=== PATIENT | male | born 1990 | race Caucasian/White ===

== ENCOUNTER 2020-07-03 16:04 | Emergency (ER) | payer OTHER, SELFPAY ==
[2020-07-03 16:41] VITALS: BP 131/81; PULSE 67; RESP 18; TEMP 37.1; O2SAT 99; BMI 22.4
== END 2020-07-04 00:58 | disposition left against medical advice (07) ==
PROVIDERS: Emergency Provider Emergency Medicine
DX: R10.9 Unspecified abdominal pain (principal)
CPT/HCPCS: 99282; 99283

== ENCOUNTER 2021-06-04 06:18 | Emergency (ER) | payer OTHER, SELFPAY ==
[2021-06-04 06:30] VITALS: BP 115/70; PULSE 83; RESP 16; TEMP 36.9; O2SAT 96; BMI 21.8
[2021-06-04 06:43] LABS: IDNOW Serial# 55D5AD1C
[2021-06-04 06:44] LABS: COVID-19 Test Positive (Negative)
--- NOTE | 2021-06-04 06:45 | ED.URI ---
HPI - URI/Sore Throat General Chief Complaint: Headache Stated Complaint: headache/covid exposure Time Seen by Provider: 06/04/21 06:45 Source: patient Mode of arrival: ambulatory Limitations: no limitations History of Present Illness MD elicited complaint: cough, nasal congestion and other (headache) Onset (ago): day(s) (few) Consistency: constant Severity: moderate Description of mucous: clear Able to tolerate fluids by mouth: Yes Exacerbating factors: nothing Relieving factors: nothing Context: sick contacts (COVID exposures at work) Associated symptoms: headache, rhinorrhea and cough Treatments prior to arrival: none Related Data Previous Rx's Medication Instructions Recorded ibuprofen 600 mg tablet 600 mg PO Q6H PRN #30 tab 06/04/21 Allergies Allergy/AdvReac Type Severity Reaction Status Date / Time No Known Allergies Allergy Unverified 06/15/20 15:59 [No Known Allergies*] Review of Systems Review of Systems: Constitutional : No Fever, No Chills, pos Fatigue, pos Malaise ENT/Mouth : No sore throat, No Rhinorrhea Eyes: No Eye Pain, No Swelling, No Redness Cardiovascular : No Chest Pain, No SOB Respiratory : pos Cough, No Sputum, No Wheezing Gastrointestinal : No Nausea, No Vomiting, No Diarrhea Genitourinary : No Dysuria, No Urinary Frequency, No Hematuria, Musculoskeletal : No joint pain, No Myalgias, No Joint Swelling Skin : No Skin Lesions, No rash Neuro : No Weakness, No Numbness, No Dizziness, pos Headache All other systems reviewed and are negative FORMERLY [facility], [facility] Past Medical History Medical History (Updated 06/04/21 @ 06:46 by Elisabeth Strange DO) No known health problems Social History Social History Advance Directives: No Advance Directives Information Provided: No Physical Exam Vital Signs: Vital Signs: Last Vital Signs Temp 98.4 F 06/04/21 06:30 Pulse 83 06/04/21 06:30 Resp 16 06/04/21 06:30 BP 115/70 06/04/21 06:30 Pulse Ox 96 06/04/21 06:30 Body Mass Index 21.8 Appearance: Alert. Oriented X3. No acute distress. Eyes: Pupils equal, round and reactive to light. ENT: Pharynx normal. Neck: Normal inspection. Neck supple. CVS: Normal heart rate and rhythm. Pulses normal. Respiratory: No respiratory distress. Breath sounds normal. Abdomen: Soft and non-tender. Skin: Skin warm and dry. Normal skin color. Extremities: No lower extremity edema. Neuro: Oriented X 3. No motor deficit. No sensory deficit. MDM - URI/Sore Throat MDM Narrative Medical decision making narrative: 30 yo male otherwise healthy c/o cough and headache post COVID exposure at work - normal 02, denies dyspnea, COVID test positive, clear lungs - supportive care and quarantine, given precautions to return Lab Data Labs: Lab Results 06/04/21 Range/Units 06:26 COVID-19 ([facility]) Positive A (Negative) COVID-19 Clin Com See Note Discharge Plan Discharge Clinical Impression: COVID-19 Patient Disposition: Home, Self-Care Instructions: COVID-19 (Coronavirus Disease 2019) (ED) Additional Instructions: return to ED for any worsening symptoms or concerns if you cannot walk to your bathroom due to shortness of breath please come back Prescriptions: New ibuprofen 600 mg tablet 600 mg PO Q6H PRN (Reason: pain) Qty: 30 RF: 0 Stand Alone Forms: Work/School Release
== END 2021-06-04 07:06 | disposition home or self-care (01) ==
PROVIDERS: Emergency Provider Emergency Medicine
DX: U07.1 COVID-19 (principal)
CPT/HCPCS: 36415; 87635; 99283

== ENCOUNTER 2023-09-10 21:29 | Emergency (ER) | payer OTHER, SELFPAY ==
--- NOTE | ~2023-09-10 | XR_ITS ---
EXAMINATION: XR CHEST CLINICAL INFORMATION: Cough COMPARISON: None available. TECHNIQUE: Frontal view of the chest was obtained. FINDINGS: No significant abnormality is noted involving the heart, lungs, mediastinum, bony thorax or soft tissues. XR/XR chest 1V IMPRESSION: Unremarkable examination.
[2023-09-10 21:30] VITALS: BP 140/81; PULSE 91; RESP 18; TEMP 38.6; O2SAT 97; BMI 21.9
[2023-09-10 21:44] LABS: MANUAL DIFF FLAG NO
[2023-09-10 21:45] LABS: Basophils Percent Auto 0.1 % (0-2); Hematocrit 39.5 % (42.0-52.0); Hemoglobin 13.3 g/dl (14.0-18.0); Imm Gran Abs Auto 0.02 X10*3/uL (0.00-0.03); Imm Gran Pct Auto 0.3 % (0.0-0.4); Lymphocytes Absolute Auto 1.4 X10*3/uL (1.2-4.9); Lymphocytes Percent Auto 18.8 % (20-40); Mean Corpuscular HGB Conc 33.7 g/dl (31.0-36.0); Mean Corpuscular Hemoglobin 28.5 pg (27.0-33.0); Mean Corpuscular Volume 84.6 fL (80.0-98.0); Mean Platelet Volume 9.8 fL (9.4-12.4); Monocytes Absolute Auto 0.6 X10*3/uL (0.1-1.2); Monocytes Percent Auto 8.3 % (2-11); Neutrophils Absolute Auto 5.3 x10*3/uL (2.0-8.3); Neutrophils Percent Auto 72.5 % (45-73); Platelet Count 155 X10*3/uL (160-400); Red Blood Count 4.67 X10*6/uL (4.60-5.80); Red Cell Distribution Width 12.8 % (11.0-16.0); White Blood Count 7.4 X10*3/uL (4.8-10.8)
[2023-09-10 21:59] LABS: Alanine Aminotransferase 22 U/L (0-40); Albumin Level 4.3 g/dL (3.5-5.0); Alkaline Phosphatase 89 U/L (39-117); Anion Gap 15 (12-20); Aspartate Amino Transferase 26 U/L (5-37); Bilirubin Total 0.3 mg/dL (0.0-1.0); Blood Urea Nitrogen 16 mg/dL (9-16); Calcium 9.2 mg/dL (8.4-10.2); Carbon Dioxide 23 mmol/L (22-29); Chloride 100 mmol/L (96-108); Creatinine Clr Calc Pharmacy 157.9; Estimated Glomerular Filt Rate > 60; Glucose Random 109 mg/dL (60-115); Potassium 3.6 mmol/L (3.3-5.1); Sodium 134 mmol/L (135-145); Total Protein 7.7 g/dL (6.5-8.0)
[2023-09-10 22:23] LABS: Influenza A PCR POSITIVE (Negative); Influenza B PCR NEGATIVE (Negative); Resp Syncy Virus RNA Qual PCR NEGATIVE (Negative); SARS COV2 PCR INHOUSE NEGATIVE (Negative)
== END 2023-09-11 00:02 | disposition left against medical advice (07) ==
LOC: HO.ED 09-11 00:01
PROVIDERS: Emergency Provider Emergency Medicine
DX: R05.9 Cough, unspecified (principal); Z20.822 Contact with and (suspected) exposure to COVID-19; Z20.828 Contact with and (suspected) exposure to other viral communicable diseases; Z79.899 Other long term (current) drug therapy
CPT/HCPCS: 0241U; 71045; 80053; 85025; 99281; 99283

== ENCOUNTER 2024-12-25 19:55 | Emergency (ER) | payer MEDICAID, SELFPAY ==
--- NOTE | 2024-12-25 20:07 | ED_ITS ---
HPI - General Adult General Chief complaint: Dental/Oral Stated complaint: tooth ache Time Seen by Provider: 12/25/24 20:09 Source: patient History of Present Illness HPI narrative: 34-year-old male presents for evaluation of 4 day history of right upper dental pain. Patient states gradual onset. He has a history of poor dentition and wears an upper partial. He denies any fevers chills nausea or vomiting. He has been eating and drinking normally. He has tried [id number] medication with minimal relief. Patient is concerned for possible infection. He is otherwise feeling well. Related Data Previous Rx's ?Medication ?Instructions ?Recorded clindamycin HCl 300 mg capsule 300 mg PO Q6H 7 days #28 caps 12/25/24 naproxen 500 mg tablet 500 mg PO BID PRN pain 7 days #14 12/25/24 tabs Allergies Allergy/AdvReac Type Severity Reaction Status Date / Time No Known Allergies Allergy Verified 12/25/24 20:09 [No Known Allergies*] Review of Systems ENT: Reports dental pain, Denies dysphagia, Denies dry mouth, Denies lip swelling, Denies sinus pain, Denies sinus pressure, Denies sore throat and Denies throat swelling Gastrointestinal: Gastrointestinal: Denies dysphagia Allergic/Immunologic: Allergic/Immunologic: Denies lip swelling and Denies throat swelling PMF Past Medical History Medical History (Updated 12/25/24 @ 20:11 by GREGG Cadena) No known health problems Social History Social History Smoked in Last 30 Days: No Use of substances other than those prescribed or required for medical reasons: No Advance Directives: No Advance Directives Information Provided: No Do you have a plan to hurt others: No Plan Physical Exam ED Vital Signs: Vital Signs - 24 hr 12/25/24 20:08 Temperature 98.3 F Pulse Rate 67 Respiratory Rate 16 Blood Pressure 125/71 Pulse Oximetry 98 Oxygen Delivery Method Room Air BMI result Body Mass Index 27.9 Const Other: Speaks full clear sentences. HENMT Other: Oropharynx is moist. Patient was able to remove his upper partial. Remaining appears to be tooth 4. And 5. They are broken and decayed. There is periapical erythema and edema. No evidence of fluctuance abscess or streaking. Nares are patent. There is no nasal discharge. There is no maxillary sinus tenderness. Speaks full clear sentences. No tongue elevation or edema. Neck Other: No lymphadenopathy Medical Decision Making Medical Decision Making MDM Narrative: 34-year-old male with dental pain over the past 4 days. Erythematous remaining gingiva. Teeth are in poor repair. Concern for developing infection. We will place patient on clindamycin given the potential for high risk for abscess. Patient will trial naproxen. He reports having a dentist in [place] that he will follow up with. Patient expresses understanding of all discharge instructions and has no further questions at this time. Differential Diagnosis Differential Diagnoses: The differential diagnosis associated with the presentation includes Dental abscess Dental caries Broken dentition Dental infection Discharge Plan Discharge Clinical Impression: Pain, dental Patient Disposition: Home, Self-Care Instructions: Dental Abscess (ED), Toothache (ED) Additional Instructions: Clindamycin as directed. Finish all antibiotics. Naproxen as directed. Take with food. Watch for increased swelling, fevers, discharge or any other concern return immediately to the emergency department. Follow-up with your primary care provider. Call this week to schedule a follow- up appointment. Return to the emergency department if you have any worsening of symptoms, or any concerns. Get well soon! Prescriptions: New clindamycin HCl 300 mg capsule 300 mg PO Q6H 7 Days Qty: 28 0RF naproxen 500 mg tablet 500 mg PO BID PRN (Reason: pain) 7 Days Qty: 14 0RF Rx Instructions: Take with food. Discontinued ibuprofen 600 mg tablet 600 mg PO Q6H PRN (Reason: pain) Qty: 30 0RF Stand Alone Forms: Work/School Release Print Language: Vietnamese
[2024-12-25 20:08] VITALS: BP 125/71; PULSE 67; RESP 16; TEMP 36.8; O2SAT 98; BMI 27.9
[2024-12-25 20:28] VITALS: BP 125/71; PULSE 67; RESP 16; TEMP 36.8; O2SAT 98
== END 2024-12-25 20:29 | disposition home or self-care (01) ==
PROVIDERS: Emergency Provider Emergency Medicine
DX: K08.89 Other specified disorders of teeth and supporting structures (principal); K05.10 Chronic gingivitis, plaque induced
CPT/HCPCS: 99283; 99284

== ENCOUNTER 2025-07-05 17:40 | Inpatient (IN) | payer OTHER, SELFPAY ==
--- NOTE | ~2025-07-05 | CT_ITS ---
CLINICAL HISTORY: new seizure, found unresponsive CT head without contrast Comparison: None provided Findings: Study limited by patient motion. Along the high right frontal convexity, there is subjacent hyperdensity that may represent a small acute subdural hematoma (series 3, images 69-70 ). In the high right frontal lobe, there is also likely a small area of subarachnoid blood ( series 3, images 51- 58 ). There is no intraventricular hemorrhage. Suspicion is further raised by the absence of a similar contralateral finding. No intra-axial mass, midline shift, or hydrocephalus. No significant atrophy-like change or white matter disease. There is no sinus or mastoid fluid. The orbits are within normal limits. No skull fracture. IMPRESSION: Study limited by patient motion. Possible right-sided small acute subdural hematoma and small area of subarachnoid hemorrhage. No intraventricular hemorrhage, hydrocephalus, or midline shift. Advise close interval repeat head CT. This document has been electronically signed by: Jean-Claude Choudhary MD on 07/05/2025 21:30:05
--- NOTE | ~2025-07-05 | CT_ITS ---
CLINICAL HISTORY: r o subdural hematoma subarachnoid hemorrhage - repeat CT per radiologist CT head without contrast Comparison: CT/SR - CT HEAD/BRAIN WO IV CON - 07/05/25 20:08 EDT Findings: The previously identified areas of concerns for small right convexity subdural hematoma and small right frontal subarachnoid hemorrhage are not clearly identified on this examination and may have been artifactual due to patient motion on the prior study. No intra-axial mass, midline shift, hydrocephalus, or acute hemorrhage. No significant atrophy-like change or white matter disease. The visualized paranasal sinuses and mastoid air cells are normal. The orbits are unremarkable. No skull fracture. IMPRESSION: Previous findings of possible small right subdural hematoma and small subarachnoid hemorrhage are not clearly seen on this examination may have been artifactual due to patient motion on the prior study. No acute findings on this examination. This document has been electronically signed by: Jean-Claude Choudhary MD on 07/05/2025 23:43:17
--- NOTE | ~2025-07-05 | CT_ITS ---
CLINICAL HISTORY: fall? found unresponsive, + new seizure CT cervical spine without contrast Comparison: None provided Findings: Normal vertebral body alignment. No significant degenerative change. No acute fractures or dislocations. Visualized intracranial contents are unremarkable. No cervical fluid collections. 0.6 cm hypodense well-circumscribed nodule in the upper pole of the left thyroid lobe. Biapical cystic airspace disease. IMPRESSION: No acute findings. This document has been electronically signed by: Jean-Claude Choudhary MD on 07/05/2025 21:08:39
[2025-07-05 17:51] VITALS: BP 128/80; PULSE 66; RESP 18; TEMP 36.7; O2SAT 96; BMI 22.8
--- NOTE | 2025-07-05 17:55 | ECG_ITS ---
Test Reason : FALL Blood Pressure : */* mmHG Vent. Rate : 55 BPM Atrial Rate : 55 BPM P-R Int : 150 ms QRS Dur : 84 ms QT Int : 346 ms P-R-T Axes : 73 55 35 degrees QTcB Int : 331 ms Sinus bradycardia Nonspecific T wave abnormality Abnormal ECG When compared with ECG of 04-Dec-2017 16:22, Nonspecific T wave abnormality now evident in Anterolateral leads QT has shortened Referred By: Generic ED Physician Electronically Signed By: WILLIS HOLLINGSWORTH MD
[2025-07-05 18:37] VITALS: BP 124/76; PULSE 68; RESP 16; TEMP 36.8; O2SAT 97
--- NOTE | 2025-07-05 18:45 | PC.NURSE ---
While getting report from Day shift RN pt started to have seizure lasting approx 60 secs, Pt turned on his side while maintaining airway, pt was given Valium 5mg IV push, pt moved into Room 4,
[2025-07-05] MEDS: diazePAM 10 MG/2 ML CARTRIDGE 5 MG IVPUSH (18:50)
[2025-07-05] MEDS: levETIRAcetam in NaCl (iso-os) 1,500 MG/100 ML PIGGYBACK 400 MG IV (19:04)
[2025-07-05 19:23] LABS: Hematocrit 39.0 % (42.0-52.0); Hemoglobin 12.9 g/dl (14.0-18.0); Imm Gran Abs Auto 0.02 X10*3/uL (0.00-0.03); Imm Gran Pct Auto 0.3 % (0.0-0.4); Lymphocytes Absolute Auto 1.9 X10*3/uL (1.2-4.9); MANUAL DIFF FLAG NO; Mean Corpuscular HGB Conc 33.1 g/dl (31.0-36.0); Mean Corpuscular Hemoglobin 28.0 pg (27.0-33.0); Mean Corpuscular Volume 84.6 fL (80.0-98.0); NRBC Abs Auto 0.000 X10*3/uL (0.0-0.012); NRBC Pct Auto 0.0 /100WBC (0.0-0.2); Platelet Count 217 X10*3/uL (160-400); Red Blood Count 4.61 X10*6/uL (4.60-5.80); White Blood Count 7.4 X10*3/uL (4.8-10.8)
[2025-07-05 19:30] LABS: Anion Gap 12 (12-20)
[2025-07-05 19:38] LABS: Alanine Aminotransferase 13 U/L (0-40); Albumin Level 4.5 g/dL (3.5-5.0); Alkaline Phosphatase 96 U/L (39-117); Aspartate Amino Transferase 18 U/L (5-37); Blood Urea Nitrogen 13 mg/dL (9-16); Calcium 9.4 mg/dL (8.4-10.2); Carbon Dioxide 28 mmol/L (22-29); Chloride 108 mmol/L (96-108); Creatinine Clr Calc Pharmacy 132.9; Estimated Glomerular Filt Rate > 60; Potassium 3.5 mmol/L (3.3-5.1); Sodium 144 mmol/L (135-145); Total Protein 7.5 g/dL (6.5-8.0)
[2025-07-05 21:22] VITALS: BP 140/83; PULSE 56; RESP 14; TEMP 36.3; O2SAT 98
--- NOTE | 2025-07-05 21:35 | PC.NURSE ---
call received from [facility] at [address] scan results, MD Laura notified at 2133.
--- NOTE | 2025-07-05 22:20 | ED_ITS ---
HPI - General Adult General Chief complaint: ETOH/Substance Use Stated complaint: baclofen & methadone fell injured R side head&ribs Time Seen by Provider: 07/05/25 18:07 Source: patient and EMS Mode of arrival: EMS Limitations: other History of Present Illness ED Provider: Dr. Cassidy Laura HPI narrative: Patient comes to the emergency room via ambulance from home. According to EMS, the patient called because she found the patient lying on the floor, confused. According to the patient, when he 1st came in, states that earlier this morning he took his prescribed methadone 155 mg. Then took 6 baclofen pills. Patient denies SI or HI. Patient states that he does not remember much after that. Patient's seems to be a little confused, answering questions fairly appropriately. But he does not seem to look quite right. Possibly under the influence of drugs versus alcohol versus postictal? Related Data Previous Rx's ?Medication ?Instructions ?Recorded clindamycin HCl 300 mg capsule 300 mg PO Q6H 7 days #2 8 caps 12/25/24 naproxen 500 mg tablet 500 mg PO BID PRN pain 7 day s #14 12/25/24 tabs Allergies Allergy/AdvReac Type Severity Reaction Status Date / Time No Known Allergies (No Known Allergy Verified 07/05/25 17:53 Allergies*) Review of Systems 2 Review of Systems: Yes Unobtainable due to mental status PMFSH Past Medical History Medical History No known health problems Social History Social History Advance Directives: No Advance Directives Information Provided: No Physical Exam ED Exam Exam: Appearance: Alert. No acute distress, seems a bit confused Eyes: Pupils equal, round and reactive to light. ENT: Pharynx normal. Neck: Normal inspection. Neck supple. No lymph nodes noted. No crepitus CVS: Normal heart rate and rhythm. Pulses normal. Normal S1 and S2 Respiratory: No respiratory distress. Breath sounds normal. No Wheezing. No rales Abdomen: Soft and nontender. No rigidity. No distention. Skin: Skin warm and dry. Normal skin color. Normal skin turgor. Patient has a small superficial laceration to the nose Extremities: No lower extremity edema. No Lacerations. No Rash Neuro: No motor deficit. No sensory deficit. Moving all extremities. No slurred speech. CN 2 through 12 grossly intact Psych: calm, cooperative, seems a bit confused Vital Signs: Vital Signs - 24 hr 07/05/25 17:51 07/05/25 18:37 07/05/25 21:22 Temperature 98.1 F 98.3 F 97.3 F Pulse Rate 66 68 56 Respiratory Rate 18 16 14 Blood Pressure 128/80 124/76 140/83 H Pulse Oximetry 96 97 98 Oxygen Delivery Method Room Air Room Air Room Air 07/06/25 00:35 Temperature 98.3 F Pulse Rate 56 Respiratory Rate 17 Blood Pressure 135/87 Pulse Oximetry 99 Oxygen Delivery Method Room Air BMI result Body Mass Index 22.8 Course Course Course Narrative: I was informed by the patient's nurse that the patient was having a tonic-clonic seizure. Immediately, we assessed the patient, patient was seizing, given 5 mg of diazepam IV. The seizure stopped All of patient's labs and imaging pending.. Medications Administered Discontinued Medications Generic Name Dose Route Start Last Admin Trade Name Freq PRN Reason Stop Dose Admin Diazepam 5 mg 07/05/25 20:19 07/05/25 18:50 Diazepam 10 Mg/2 Ml Cartridge IVPUSH 07/05/25 20:20 5 mg STAT STA Administration Sodium Chloride 2,000 mls @ 999 mls/hr 07/05/25 19:37 07/05/25 22:31 Ns IVCONT 07/05/25 21:37 Infused .Q2H1M ONE Infusion Levetiracetam 1,500 mg in 100 mls @ 400 mls/hr 07/05/25 19:37 07/05/25 19:30 Keppra IV 07/05/25 19:51 Infused ONCE ONE Infusion Medical Decision Making Medical Decision Making [facility] Narrative: My interpretation of EKG: Sinus bradycardia, heart rate 55, no ST segment depression or elevation, no T-wave inversion, QTC 331 My interpretation of labs: No significant abnormality in patient's hematology or chemistry. Ethanol level negative Cervical spine CT does not show any acute abnormality. The CT scan of the brain is inconclusive. There may be small acute subdural hematoma and a small area of small subarachnoid hemorrhage. Steady submitted by patient motion. We will repeat the CT scan. Patient is still somnolent. Patient wakes up when his name is called, opens his eyes, asks what? And goes back to sleep. 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 Repeat CT scan does not show any acute bleed. Patient is more awake, alert but still somnolent. I discussed the patient with Dr. Patel, patient being admitted Differential Diagnosis Differential Diagnoses: The differential diagnosis associated with the presentation includes (Seizure, polysubstance abuse, alcohol abuse, concussion) Admission/Observation Consideration of admission/observation: Escalation of care including admission/observation considered Consult Healthcare Provider Management of the patient was discussed with: Hospitalist Lab Data MDM Lab Attestation statement: I reviewed the patient's lab results. 07/05/25 18:53 07/05/25 18:53 Labs: Lab Results 07/05/25 Range/Units 18:53 WBC 7.4 (4.8-10.8) X10*3/uL RBC 4.61 (4.60-5.80) X10*6/uL Hgb 12.9 L (14.0-18.0) g/dl Hct 39.0 L (42.0-52.0) % MCV 84.6 (80.0-98.0) fL MCH 28.0 (27.0-33.0) pg MCHC 33.1 (31.0-36.0) g/dl RDW 14.8 (11.0-16.0) % Plt Count 217 D (160-400) X10*3/uL MPV 10.0 (9.4-12.4) fL Immature Gran % (Auto) 0.3 (0.0-0.4) % Neut % (Auto) 65.1 (45-73) % Lymph % (Auto) 25.5 (20-40) % Isabella % (Auto) 8.1 (2-11) % Eos % (Auto) 0.7 (0-4) % Baso % (Auto) 0.3 (0-2) % Lymph # (Auto) 1.9 (1.2-4.9) X10*3/uL Isabella # (Auto) 0.6 (0.1-1.2) X10*3/uL Eos # (Auto) 0.1 (0.0-0.4) X10*3/uL Baso # (Auto) 0.0 (0.0-0.2) X10*3/uL Abs Immat Gran (auto) 0.02 (0.00-0.03) X10*3/uL Absolute Neuts (auto) 4.8 (2.0-8.3) x10*3/uL Absolute Nucleated RBC 0.000 (0.0-0.012) X10*3/uL Nucleated RBC % (auto) 0.0 (0.0-0.2) /100WBC Sodium 144 (135-145) mmol/L Potassium 3.5 (3.3-5.1) mmol/L Chloride 108 (96-108) mmol/L Carbon Dioxide 28 (22-29) mmol/L Anion Gap 12 (12-20) BUN 13 (9-16) mg/dL Creatinine 0.83 (0.5-1.4) mg/dL Estim Creat Clear Calc 132.9 Estimated GFR > 60 Random Glucose 93 (60-115) mg/dL Calcium 9.4 (8.4-10.2) mg/dL Total Bilirubin 0.2 (0.0-1.0) mg/dL AST 18 (5-37) U/L ALT 13 (0-40) U/L Alkaline Phosphatase 96 (39-117) U/L Total Creatine Kinase 157 (38-174) U/L Total Protein 7.5 (6.5-8.0) g/dL Albumin 4.5 (3.5-5.0) g/dL Ethyl Alcohol < 10 mg/dL Independent Interpretation I performed an independent interpretation of an: EKG and CT Scan Radiology Impression Discussion of test interpretation with radiology: I have reviewed the radiologist's reading. Radiologist Impression: Previous findings of possible small right subdural hematoma and small subarachnoid hemorrhage are not clearly seen on this examination may have been artifactual due to patient motion on the prior study. No acute findings on this examination. Critical Care Time Critical Care Time Critical Care Time: Yes Total Critical Care Time: 70 Attestation: I have personally provided critical care time. Time includes review of lab data, radiology results, discussion with consultants, and monitoring for potential decompensation. Intervention performed as documented. Discharge Plan Discharge Clinical Impression: Seizure Patient Disposition: Home, Self-Care Instructions: Recurrent Seizures in Adults (ED) Prescriptions: No Action clindamycin HCl 300 mg capsule 300 mg PO Q6H 7 Days Qty: 28 0RF naproxen 500 mg tablet 500 mg PO BID PRN (Reason: pain) 7 Days Qty: 14 0RF Rx Instructions: Take with food. Print Language: Unable To Collect
--- NOTE | 2025-07-05 23:40 | PC.NURSE ---
Pt awake and alert, mother at bedside, stated that patient may have had a seizure at home due her finding pt on the floor face first
[2025-07-06 00:35] VITALS: BP 135/87; PULSE 56; RESP 17; TEMP 36.8; O2SAT 99
--- NOTE | 2025-07-06 02:46 | PM.IMHP ---
History of Present Illness Date of Service: 07/06/25 Attending physician on admission: Franck Patel Chief Complaint: seizure Patient is a 34-year-old male with a past medical history significant for substance use disorder on methadone and history of epilepsy as a child (no seizure and many years), who presented to the ED after a witnessed seizure. The patient reports that he has been taking his mother's baclofen, usually takes about 4 per day, has gone about 6 days without in took 6 baclofen just prior to the seizure. He was found on the floor by a family member and EMS was called. The patient took this just after taking his methadone from [facility], 155 mg. He denies SI or HI. He reports he has been taking the baclofen for quite awhile, no clear reason why. Upon arrival he was slow to respond and was complaining of neck pain. He had a witnessed seizure in the ED and was responsive to diazepam, lethargic afterwards but responsive. Review of Systems Constitutional: Constitutional: Denies body ache(s), Denies chills, Denies fatigue, Denies fever(s) and Denies headache(s) Eyes: Eyes: Denies change in vision ENT: Denies headache(s), Denies nasal congestion and Denies sore throat Cardiovascular: Cardiovascular: Denies chest pain, Denies rapid heart rate, Denies leg edema, Denies lightheadedness and Denies dyspnea Respiratory: Respiratory: Denies chest congestion, Denies cough, Denies dyspnea and Denies wheezing Gastrointestinal: Gastrointestinal: Denies abdominal pain, Denies nausea and Denies vomiting Genitourinary: Genitourinary: Denies dysuria and Denies urinary urgency Musculoskeletal: Musculoskeletal: Denies myalgias Integumentary/Breasts: Skin/Breast: Denies rash Neurologic: Denies confusion and Denies headache(s) Psychiatric: Psychiatric: Denies confusion Endocrine: Endocrine: Denies fatigue Hematologic/Lymphatic: Hematologic/Lymphatic: Denies easy bleeding and Denies easy bruising Allergic/Immunologic: Allergic/Immunologic: Denies wheezing PMFSH Medical History No known health problems Functional capacity: independent ambulation Social History Advance Directives: No Advance Directives Information Provided: No Narrative: On methadone, denies tobacco, additional drug use aside from baclofen abuse. No alcohol Meds Allergies Allergy/AdvReac Type Severity Reaction Status Date / Time No Known Allergies (No Known Allergy Verified 07/05/25 17:53 Allergies*) Active Medications: Current Medications Acetaminophen (Acetaminophen 325 Mg Tablet) 975 mg PO Q6H PRN PRN Reason: Pain, Mild 1-3,fever,headache Calcium Carbonate (Calcium Carbonate 750 Mg Tab.Chew) 750 mg PO Q4H PRN PRN Reason: Heartburn Diazepam (Diazepam 10 Mg/2 Ml Cartridge) 5 mg IVPUSH Q4H PRN PRN Reason: seizure Lactated Ringer's (Lr) 1,000 mls @ 100 mls/hr IVCONT .Q10H KAREN Magnesium Hydroxide (Milk Of Magnesia 30 Ml Oral.Susp) 30 ml PO DAILY PRN PRN Reason: Constipation Melatonin (Melatonin 3 Mg Tablet) 6 mg PO BEDTIME PRN PRN Reason: Insomnia Ondansetron HCl (Ondansetron Hcl 4 Mg/2 Ml Vial) 4 mg IVPUSH Q8H PRN PRN Reason: Nausea and Vomiting Oxycodone HCl (Oxycodone Hcl Immed Release 5 Mg Tablet) 5 mg PO Q6H PRN PRN Reason: Pain, Severe (Pain Scale 7-10) Sodium Chloride (0.9 % Sodium Chloride Flush 3 Ml Syringe) 3 ml IVFLUSH QSHIFT KAREN Tramadol HCl (Tramadol Hcl 50 Mg Tablet) 50 mg PO Q6H PRN PRN Reason: Pain, Moderate(Pain Scale 4-6) Physical Exam Vital Signs and Narrative: Vital Signs: Last Vital Signs Temp 98.3 F 07/06/25 00:35 Pulse 56 07/06/25 00:35 Resp 17 07/06/25 00:35 BP 135/87 07/06/25 00:35 Pulse Ox 99 07/06/25 00:35 O2 Del Method Room Air 07/06/25 00:35 BMI result Body Mass Index 22.8 General: AOx3, no acute distress Resp: CTA bilaterally CVS: S1, S2, RRR GI: +BS, NT, no distention Skin: Warm, dry Neuro: Cranial nerves II-XII grossly intact bilaterally. Motor grossly intact bilaterally Extremities: No pitting edema Psych: Appropriate affect Const: General: No confusion Orientation/consciousness: No confusion Neuro: General: No confusion Results Labs 07/06/25 05:26 07/06/25 05:26 Labs: Laboratory Results - last 24 hr 07/05/25 18:53 MCV 84.6 MCH 28.0 MCHC 33.1 RDW 14.8 Plt Count 217 D MPV 10.0 Immature Gran % (Auto) 0.3 Neut % (Auto) 65.1 Lymph % (Auto) 25.5 [place] % (Auto) 8.1 Eos % (Auto) 0.7 Baso % (Auto) 0.3 Lymph # (Auto) 1.9 [place] # (Auto) 0.6 Eos # (Auto) 0.1 Baso # (Auto) 0.0 Abs Immat Gran (auto) 0.02 Absolute Neuts (auto) 4.8 Absolute Nucleated RBC 0.000 Nucleated RBC % (auto) 0.0 Anion Gap 12 Estim Creat Clear Calc 132.9 Estimated GFR > 60 Random Glucose 93 Calcium 9.4 Total Bilirubin 0.2 AST 18 ALT 13 Alkaline Phosphatase 96 Total Creatine Kinase 157 Total Protein 7.5 Albumin 4.5 Ethyl Alcohol < 10 Assessment and Plan (1) Seizure: Status: Acute (2) Drug abuse: Status: Acute Plan Patient is a 34-year-old male with a past medical history significant for substance use disorder on methadone and history of epilepsy as a child (no seizure and many years), who presented to the ED after a witnessed seizure. seizure, likley baclofen withdrawal - concern for brain bleed on intial CT, repeat negative - MRI brain with and without IV contrast - tele - diazepam PRN for seizure - baclofen 20mg BID due to concern for baclofen abuse/withdrawal, will need to taper off - EEG - neuro consult LISSY - methadone from [facility], will need to be confirmed full code VTE prophy: pneumoboots due to CT concerns Pt with seizure, likey due to baclofen withdrawal, requiring admission for at least 2 midnights stay for further evaluation and monitoring. Quality Stroke Does the patient have a stroke diagnosis?: No VTE Prior VTE?: No VTE Risk Level:: Medical - moderate - high VTE Device Contraindication: N/A - Device Ordered VTE Drug Contraindication: Treatment Not Indicated
[2025-07-06 05:36] VITALS: BP 122/77; PULSE 59; RESP 17; TEMP 36.7; O2SAT 98
[2025-07-06 05:48] LABS: Hematocrit 35.8 % (42.0-52.0); Hemoglobin 12.2 g/dl (14.0-18.0); Mean Corpuscular HGB Conc 34.1 g/dl (31.0-36.0); Mean Corpuscular Hemoglobin 28.6 pg (27.0-33.0); Mean Corpuscular Volume 83.8 fL (80.0-98.0); NRBC Abs Auto 0.000 X10*3/uL (0.0-0.012); NRBC Pct Auto 0.0 /100WBC (0.0-0.2); Platelet Count 209 X10*3/uL (160-400); Red Blood Count 4.27 X10*6/uL (4.60-5.80); White Blood Count 8.9 X10*3/uL (4.8-10.8)
[2025-07-06 06:03] LABS: Anion Gap 12 (12-20); Blood Urea Nitrogen 10 mg/dL (9-16); Calcium 8.9 mg/dL (8.4-10.2); Carbon Dioxide 24 mmol/L (22-29); Chloride 112 mmol/L (96-108); Creatinine Clr Calc Pharmacy 164.7; Estimated Glomerular Filt Rate > 60; Potassium 3.5 mmol/L (3.3-5.1); Sodium 144 mmol/L (135-145)
[2025-07-06] MEDS: Dextrose 5 % and Lactated Ring 1,000 ML 100 ML IVCONT (06:11)
[2025-07-06] MEDS: oxyCODONE HCl Immed Release 5 MG TABLET PO (06:15)
--- NOTE | 2025-07-06 08:03 | PC.NURSE ---
On first contact with pt, pt aggressive pulling at IV tape. Sating I don't know why you have to watch me Increasingly restless, request IV to be removed. This RN took IV out, and pt states he wants to leave. Dr Aguilar notified of pt wanting to leave and aggressive behavior. No initial response. Educated pt on risk of leaving and seizure precautions as well as follow up with pcp to coordinate and referrals that may be needed. Pt steady on feet, a/o. Walked out of ED.
--- NOTE | 2025-07-06 10:14 | P.DS_ITS ---
DS: Providers Provider Date of Service: 07/06/25 Date of admission: 07/06/25 01:01 Date of discharge: 07/06/25 Primary care physician: Unknown Physician Consults: 07/06/25 02:41 Consult to Neurology Routine Consulting Provider: [facility] [place] [facility] Reason for consultation: seizures, hx epilepsy as a child Has provider been notified: No DS: Diagnosis Discharge Diagnosis (1) Seizure: Status: Acute (2) Drug abuse: Status: Acute (3) Eloped from emergency department: Status: Acute DS: Summary Hospital Course Hospital Course: From the history and physical by the admitting hospitalist, GREGG Antoine, 07/06/25: Patient is a 34-year-old male with a past medical history si gnificant for substance use disorder on methadone and history of epilepsy as a child (no seizure and many years), who presented to the ED after a witnessed seizure. The patient reports that he has been taking his mother's baclofen, usually takes about 4 per day, has gone about 6 days without in took 6 baclofen just prior to the seizure. He was found on the floor by a family member and EMS was called. The patient took this just after taking his methadone from [facility], 155 mg. He denies SI or HI. He reports he has been taking the baclofen for quite awhile, no clear reason why. Upon arrival he was slow to respond and was complaining of neck pain. He had a witnessed seizure in the ED and was responsive to diazepam, lethargic afterwards but responsive. The patient woke up and became verbally aggressive. IV was removed at his request. He left the Emergency Department without signing AMA paperwork and before I could assess the patient. Time Attestation Discharge Coordination Time (in mins): 10 Quality: Safe Use of Opioids Does Pt have an Active Cancer Diagnosis on the Problem List?: No Quality: Stroke Does the patient have a stroke diagnosis?: No Physical Exam Vital Signs: Vital Signs: Last Vital Signs Temp 98.0 F 07/06/25 05:36 Pulse 59 07/06/25 05:36 Resp 17 07/06/25 05:36 BP 122/77 07/06/25 05:36 Pulse Ox 98 07/06/25 05:36 O2 Del Method Room Air 07/06/25 05:36 BMI result Body Mass Index 22.8 left without being seen DS: Data Data Completed and Pending Completed studies during hospitalization [Text1]: Laboratory Results WBC 8.9 X10*3/uL (4.8-10.8) 07/06/25 05:26 RBC 4.27 X10*6/uL (4.60-5.80) L 07/06/25 05:26 Hgb 12.2 g/dl (14.0-18.0) L 07/06/25 05:26 Hct 35.8 % (42.0-52.0) L 07/06/25 05:26 MCV 83.8 fL (80.0-98.0) 07/06/25 05:26 MCH 28.6 pg (27.0-33.0) 07/06/25 05:26 MCHC 34.1 g/dl (31.0-36.0) 07/06/25 05:26 RDW 14.9 % (11.0-16.0) 07/06/25 05:26 Plt Count 209 X10*3/uL (160-400) 07/06/25 05:26 MPV 10.2 fL (9.4-12.4) 07/06/25 05:26 Immature Gran % (Auto) 0.3 % (0.0-0.4) 07/05/25 18:53 Neut % (Auto) 65.1 % (45-73) 07/05/25 18:53 Lymph % (Auto) 25.5 % (20-40) 07/05/25 18:53 [place] % (Auto) 8.1 % (2-11) 07/05/25 18:53 Eos % (Auto) 0.7 % (0-4) 07/05/25 18:53 Baso % (Auto) 0.3 % (0-2) 07/05/25 18:53 Lymph # (Auto) 1.9 X10*3/uL (1.2-4.9) 07/05/25 18:53 [place] # (Auto) 0.6 X10*3/uL (0.1-1.2) 07/05/25 18:53 Eos # (Auto) 0.1 X10*3/uL (0.0-0.4) 07/05/25 18:53 Baso # (Auto) 0.0 X10*3/uL (0.0-0.2) 07/05/25 18:53 Abs Immat Gran (auto) 0.02 X10*3/uL (0.00-0.03) 07/05/25 18:53 Absolute Neuts (auto) 4.8 x10*3/uL (2.0-8.3) 07/05/25 18:53 Absolute Nucleated RBC 0.000 X10*3/uL (0.0-0.012) 07/06/25 05:26 Nucleated RBC % (auto) 0.0 /100WBC (0.0-0.2) 07/06/25 05:26 Sodium 144 mmol/L (135-145) 07/06/25 05:26 Potassium 3.5 mmol/L (3.3-5.1) 07/06/25 05:26 Chloride 112 mmol/L (96-108) H 07/06/25 05:26 Carbon Dioxide 24 mmol/L (22-29) 07/06/25 05:26 Anion Gap 12 (12-20) 07/06/25 05:26 BUN 10 mg/dL (9-16) 07/06/25 05:26 Creatinine 0.67 mg/dL (0.5-1.4) 07/06/25 05:26 Estim Creat Clear Calc 164.7 07/06/25 05:26 Estimated GFR > 60 07/06/25 05:26 Random Glucose 82 mg/dL (60-115) 07/06/25 05:26 Calcium 8.9 mg/dL (8.4-10.2) 07/06/25 05:26 Total Bilirubin 0.2 mg/dL (0.0-1.0) 07/05/25 18:53 AST 18 U/L (5-37) 07/05/25 18:53 ALT 13 U/L (0-40) 07/05/25 18:53 Alkaline Phosphatase 96 U/L (39-117) 07/05/25 18:53 Total Creatine Kinase 157 U/L (38-174) 07/05/25 18:53 Total Protein 7.5 g/dL (6.5-8.0) 07/05/25 18:53 Albumin 4.5 g/dL (3.5-5.0) 07/05/25 18:53 Ethyl Alcohol < 10 mg/dL 07/05/25 18:53 Discharge Plan Discharge Patient Disposition: Left W/O Completing Treatment Discharge Diagnosis: drug abuse, seizure, eloped Referrals: Physician,Unknown J [Primary Care Provider, Medical] - 1 Week Discharge Medications: No Action clonidine HCl 0.1 mg tablet 0.1 mg PO BID PRN (Reason: Anxiety/Sleep) Discharge Orders: Discharge Order (Routine); Ordered 07/06/25 Ordered By: Ana Aguilar Print Language: Unable To Collect Care Plan Goals: appropriate medical care Health Concerns: drug abuse seizure eloped Plan of Treatment: return to the hospital as soon as possible Assessment: See Discharge Summary. Patient Instructions: Recurrent Seizures in Adults (ED)
== END 2025-07-06 21:53 | disposition left against medical advice (07) | DRG 812 ==
LOC: HO.ED 07-06 00:52 → HO.EDOVER 07-06 01:03
PROVIDERS: Admitting Provider Physician Assistant; Emergency Provider Emergency Medicine; Visit Provider Family Medicine
DX: T42.8X1A Poisoning by antiparkinsonism drugs and other central muscle-tone depressants, accidental (unintentional), initial encounter (principal); R56.9 Unspecified convulsions; F11.20 Opioid dependence, uncomplicated; F13.139 Sedative, hypnotic or anxiolytic abuse with withdrawal, unspecified; W19.XXXA Unspecified fall, initial encounter; Z79.899 Other long term (current) drug therapy
CPT/HCPCS: 36415; 70450; 72125; 80048; 80053; 80307; 82550; 85025; 85027; 93005; 99284; J1953; J3360

== ENCOUNTER → 2025-07-05 17:55 | Outpatient (BNV) | payer OTHER, SELFPAY | PROVIDERS: Admitting Provider Physician Assistant; Emergency Provider Emergency Medicine; Visit Provider Internal Medicine Cardiovascular Disease | DX: R00.1 Bradycardia, unspecified (principal) | CPT/HCPCS: 93010 ==

== ENCOUNTER → 2025-07-05 19:36 | Outpatient (BNV) | payer OTHER, SELFPAY | PROVIDERS: Emergency Provider Emergency Medicine; Visit Provider Student in an Organized Health Care Education/Training Program | DX: R56.9 Unspecified convulsions (principal); R46.4 Slowness and poor responsiveness | CPT/HCPCS: 70450; 72125 ==

== ENCOUNTER → 2025-07-06 01:01 | Outpatient (BNV) | payer OTHER, SELFPAY | PROVIDERS: Admitting Provider Physician Assistant; Emergency Provider Emergency Medicine; Visit Provider Family Medicine | DX: R56.9 Unspecified convulsions (principal); F19.10 Other psychoactive substance abuse, uncomplicated; Z53.21 Procedure and treatment not carried out due to patient leaving prior to being seen by health care provider | CPT/HCPCS: 99234; 99499 ==